=== PATIENT | female | born 1950 | race Caucasian/White ===

== ENCOUNTER → 2016-10-25 | Outpatient (CLI) | payer MEDICARE, BC ==
--- NOTE | 2016-10-25 16:39 | BD ---
EXAMINATION TYPE: MG DEXA axial skeleton. DATE OF EXAM: 10/25/2016 COMPARISON: 10.07.2013 CLINICAL HISTORY: 66-year-old female M89.9, M81.0, M85.8 Height: 62.5 Weight: 168 FRAX RISK QUESTIONS: Alcohol (3 or more units per day): NO Family History (Parent hip fracture): NO Glucocorticoids (More than 3mos): NO (Ex: prednisone, prednisolone, methylprednisolone, dexamethasone, and hydrocortisone). History of Fracture in Adulthood: NO Secondary Osteoporosis: NO 1. Type 1 Diabetes: NO 2. Hyperthyroidism: NO 3. Menopause before 45: NO 4. Malnutrition: NO 5. Chronic liver disease: NO Rheumatoid Arthritis: NO Current Tobacco Use: NO RISK FACTORS HISTORY OF: Family History of Osteoporosis: NONE Active: YES Diet low in dairy products/other sources of calcium: NO Postmenopausal woman: YES AT AGE 48 Hyperparathyroidism: NO Adrenal Insufficiency: NO MEDICATIONS: Additional Medications: BP MEDS, CALCIUM AND VIT D, STATIN FOR CHOLESTEROL, Additional History: NONE TO NOTE EXAM MEASUREMENTS: Bone mineral densitometry was performed using the [employer] System. Bone mineral density as measured about the Lumbar spine is: ----- L1-L4(G/cm2): 0.934 T Score Values are as follows: ----- L1: -2.0 ----- L2: -2.4 ----- L3: -2.3 ----- L4: -1.8 ----- L1-L4: -2.1 Bone mineral density has: Increased 6.2% since study of: 10.07.2013 Bone mineral density about the R hip (g/cm2): 0.832 Bone mineral density about the L hip (g/cm2): 0.888 T Score values are as follows: -----R Neck: -1.4 -----L Neck: -1.2 -----R Total: -1.4 -----L Total: -1.0 Bone mineral density has: Decreased -0.9% since study of: 10.07.2013 FRAX %'S: THERE IS A 8.3% CHANCE OF A MAJOR OSTEOPOROTIC FX AND A 0.8% CHANCE OF A HIP FX.....PRO BABILITY IN 10 YRS TIME IMPRESSION: Osteopenia as indicated by T score values in both hips. There is slightly increased risk of fracture and the patient may be considered for treatment. Re-Scre en 2-5 years NOTE: T-SCORE=SD OF THE YOUNG ADULT MEAN.
--- NOTE | 2016-10-27 09:10 | MM ---
Reason for exam: screening (asymptomatic). Last mammogram was performed 1 year ago. History: Patient is postmenopausal. Family history of premenopausal breast cancer in cousin at age 49 and breast cancer in aunt at age 65. Took hormonal contraceptives for 3 years beginning at age 24. Physical Findings: A clinical breast exam by your physician is recommended on an annual basis and results should be correlated with mammographic findings. MG 3D Screening Mammo W/Cad Bilateral CC and MLO view(s) were taken. Prior study comparison: October 12, 2015, bilateral MG screening mammo w CAD. October 08, 2014, bilateral MG screening mammo w CAD. October 07, 2013, bilateral MG screening mammo w CAD. The breast tissue is heterogeneously dense. This may lower the sensitivity of mammography. Stable global asymmetries. No significant changes when compared with prior studies. ASSESSMENT: Negative, BI-RAD 1 RECOMMENDATION: Routine screening mammogram of both breasts in 1 year.
== END | disposition home or self-care (01) ==
LOC: RADMAMWWP 14:53
PROVIDERS: ATTEND Obstetrics & Gynecology
DX: Z12.31 Encounter for screening mammogram for malignant neoplasm of breast (principal); M81.0 Age-related osteoporosis without current pathological fracture; M85.852 Other specified disorders of bone density and structure, left thigh; M85.851 Other specified disorders of bone density and structure, right thigh
CPT/HCPCS: 77080; 77063; G0202

== ENCOUNTER → 2017-11-09 | Outpatient (CLI) | payer MEDICARE, BC ==
--- NOTE | 2017-11-15 10:05 | MM ---
Reason for exam: screening (asymptomatic). Last mammogram was performed 1 year ago. History: Patient is postmenopausal. Family history of premenopausal breast cancer in cousin at age 49 and breast cancer in aunt at age 65. Took hormonal contraceptives for 3 years beginning at age 24. Physical Findings: A clinical breast exam by your physician is recommended on an annual basis and results should be correlated with mammographic findings. MG 3D Screening Mammo W/Cad Bilateral CC and MLO view(s) were taken. Prior study comparison: October 25, 2016, bilateral MG 3d screening mammo w/cad. October 12, 2015, bilateral MG screening mammo w CAD. Focal asymmetry right upper outer quadrant, stable. No significant changes when compared with prior studies. ASSESSMENT: Benign, BI-RAD 2 RECOMMENDATION: Routine screening mammogram of both breasts in 1 year.
== END | disposition home or self-care (01) ==
LOC: RADMAMWWP 10:45
PROVIDERS: ATTEND Obstetrics & Gynecology
DX: Z12.31 Encounter for screening mammogram for malignant neoplasm of breast (principal)
CPT/HCPCS: 77063; 77067

== ENCOUNTER → 2018-11-13 | Outpatient (CLI) | payer MEDICARE ==
--- NOTE | 2018-11-15 12:01 | MM ---
Reason for exam: screening (asymptomatic). Last mammogram was performed 1 year ago. History: Patient is postmenopausal. Family history of premenopausal breast cancer in cousin at age 49 and breast cancer in aunt at age 65. Took hormonal contraceptives for 3 years beginning at age 24. Physical Findings: A clinical breast exam by your physician is recommended on an annual basis and results should be correlated with mammographic findings. MG 3D Screening Mammo W/Cad Bilateral CC and MLO view(s) were taken. Prior study comparison: November 09, 2017, bilateral MG 3d screening mammo w/cad. October 25, 2016, bilateral MG 3d screening mammo w/cad. The breast tissue is heterogeneously dense. This may lower the sensitivity of mammography. Dense tissues are present in the upper outer quadrants. No significant changes when compared with prior studies. ASSESSMENT: Negative, BI-RAD 1 RECOMMENDATION: Routine screening mammogram of both breasts in 1 year.
== END | disposition home or self-care (01) ==
LOC: RADMAMWWP 09:36
PROVIDERS: ATTEND Obstetrics & Gynecology
DX: Z12.31 Encounter for screening mammogram for malignant neoplasm of breast (principal)
CPT/HCPCS: 77063; 77067

== ENCOUNTER → 2019-12-03 | Outpatient (CLI) | payer MEDICARE ==
--- NOTE | 2019-12-03 13:24 | MM ---
Reason for exam: screening (asymptomatic). Last mammogram was performed 1 year and 1 month ago. History: Patient is postmenopausal. Family history of premenopausal breast cancer in cousin at age 49 and breast cancer in aunt at age 65. Took hormonal contraceptives for 3 years beginning at age 24. Physical Findings: A clinical breast exam by your physician is recommended on an annual basis and results should be correlated with mammographic findings. MG 3D Screening Mammo W/Cad Bilateral CC and MLO view(s) were taken. Prior study comparison: November 13, 2018, bilateral MG 3d screening mammo w/cad. November 09, 2017, bilateral MG 3d screening mammo w/cad. The breast tissue is heterogeneously dense. This may lower the sensitivity of mammography. There are benign appearing round calcifications bilaterally. There is no discrete abnormality. ASSESSMENT: Benign, BI-RAD 2 RECOMMENDATION: Routine screening mammogram of both breasts in 1 year.
== END | disposition home or self-care (01) ==
LOC: RADMAMWWP 08:07
PROVIDERS: ATTEND Obstetrics & Gynecology
DX: Z12.31 Encounter for screening mammogram for malignant neoplasm of breast (principal); Z80.3 Family history of malignant neoplasm of breast
CPT/HCPCS: 77063; 77067

== ENCOUNTER 2019-12-20 07:54 | Day surgery (SDC) | payer MEDICARE ==
[2019-12-18 12:54] VITALS: BMI 29.2
[~2019-12-20 07:54] MED LIST: LACTATED RINGERS 1,000 ML IV SCH; LIDOCAINE 1% (10MG/ML) FOR IV START INTRADERMA PRN
[2019-12-20 08:14] VITALS: TEMP 97.8
[2019-12-20] MEDS ORDERED: LACTATED RINGERS 1,000 ML IV ONE ×2 (08:14)
[2019-12-20] MEDS ORDERED: MIDAZOLAM 2 MG/2 ML VIAL ONE (08:34)
[2019-12-20] MEDS ORDERED: PROPOFOL 10 MG/ML 20 ML VIAL IV ONE (08:34)
--- NOTE | 2019-12-20 08:57 | P.PCN ---
Date of Procedure: 12/20/19 Procedure(s) Performed: BRIEF HISTORY: Patient is a 69-year-old pleasant white female scheduled for an elective colonoscopy as a part of screening for colorectal neoplasia. She has family history of colon cancer diagnosed in her mother at age 65. PROCEDURE PERFORMED: Colonoscopy. PREOPERATIVE DIAGNOSIS: Screening for colon cancer/family history of colon cancer. IV sedation per Anesthesia. PROCEDURE: After informed consent was obtained, the patient, was brought into the endoscopy unit. IV sedation was administered by Anesthesia under continuous monitoring. Digital rectal examination was normal. Initially the Olympus CF-160 flexible video colonoscope was then inserted in the rectum, gradually advanced into the cecum without any difficulty. Careful examination was performed as the scope was gradually being withdrawn. Ileocecal valve and the appendiceal orifice were visualized and appeared normal. Prep was excellent. Mucosa of the cecum, ascending colon, transverse colon, descending colon, sigmoid colon, and rectum appeared normal. Retroflexion was performed in the rectum and no lesions were seen. The patient tolerated the procedure well. IMPRESSION: Normal-appearing colon from rectum to cecum with no evidence of colorectal neoplasia RECOMMENDATIONS: Findings of this examination were discussed with the patient is well as her family. She was advised to have a repeat screening colonoscopy in 5 years because of the family history of colon cancer.
[2019-12-20 09:00] VITALS: RESP 16
[2019-12-20 09:13] VITALS: BP 127/74; PULSE 59
== END 2019-12-20 09:29 | disposition home or self-care (01) ==
LOC: ORWHC2ENDO 07:54
PROVIDERS: ATTEND Internal Medicine Gastroenterology
DX: Z12.11 Encounter for screening for malignant neoplasm of colon (principal); Z80.0 Family history of malignant neoplasm of digestive organs; I10 Essential (primary) hypertension; K21.9 Gastro-esophageal reflux disease without esophagitis; Z88.2 Allergy status to sulfonamides; Z79.899 Other long term (current) drug therapy
CPT/HCPCS: J2250; J2704; G0105

== ENCOUNTER → 2020-01-02 | Outpatient (CLI) | payer MEDICARE ==
--- NOTE | 2020-01-02 15:35 | BD ---
EXAMINATION TYPE: Axial Bone Density DATE OF EXAM: 01/02/2020 COMPARISON: NONE CLINICAL HISTORY: Height: 62 Weight: 167.4 FRAX RISK QUESTIONS: Alcohol (3 or more units per day): no Family History (Parent hip fracture): no Glucocorticoids (More than 3mos): no (Ex: prednisone, prednisolone, methylprednisolone, dexamethasone, and hydrocortisone). History of Fracture in Adulthood: no Secondary Osteoporosis: 1. Type 1 Diabetes: no 2. Hyperthyroidism: no 3. Menopause before 45: no 4. Malnutrition: no 5. Chronic liver disease: no Rheumatoid Arthritis: no Current Tobacco Use: no RISK FACTORS HISTORY OF: Active: yes Diet low in dairy products/other sources of calcium: yes Postmenopausal woman: age 48 Lost more than 2 inches in height since high school: just 2 inches MEDICATIONS: bp meds, cholesterol meds Additional History: EXAM MEASUREMENTS: Bone mineral densitometry was performed using the [employer] System. Bone mineral density as measured about the Lumbar spine is: ----- L1-L4(G/cm2): 0.921-2.3 T Score Values are as follows: ----- L2: -2.3 ----- L3: -2.7 ----- L4:-1.8 ----- L1-L4: -2.2 Bone mineral density has: DECREASED -2.2 % since study of: 10.25.2016 Bone mineral density about the R hip (g/cm2): 0.802 Bone mineral density about the L hip (g/cm2): 0.857 T Score values are as follows: -----R Neck: -1.7 -----L Neck: -1.3 -----R Total: -1.7 -----L Total: -1.2 Bone mineral density has: DECREASED -4.2 % since study of: 10.25.2016 IMPRESSION: Osteopenia NOTE: T-SCORE=SD OF THE YOUNG ADULT MEAN.
== END | disposition home or self-care (01) ==
LOC: RADBDWWP 14:03
PROVIDERS: ATTEND Obstetrics & Gynecology
DX: M85.80 Other specified disorders of bone density and structure, unspecified site (principal)
CPT/HCPCS: 77080

== ENCOUNTER → 2020-06-08 | Outpatient (CLI) | payer MEDICARE ==
--- NOTE | 2020-06-08 08:59 | US ---
EXAMINATION TYPE: US abdomen complete DATE OF EXAM: 06/08/2020 COMPARISON: NONE CLINICAL HISTORY: E80.6 Other disorders of bilirubin. Abnormal blood work EXAM MEASUREMENTS: Liver Length: 13.6 cm Gallbladder Wall: 0.1 cm CBD: 0.4 cm Spleen: 9.1 cm Right Kidney: 11.4 x 4.7 x 4.3 cm Left Kidney: 11.7 x 4.9 x 4.5 cm Pancreas: No pathology seeen Liver: wnl Gallbladder: wnl Evidence for sonographic Sanford's sign: No CBD: wnl Spleen: multiple echogenic foci scattered throughout. Right Kidney: No hydronephrosis or masses seen Left Kidney: Dilated renal pelvis Upper IVC: wnl Abd Aorta: wnl IMPRESSION: 1. Splenic granuloma. 2. Mild prominence the left renal collecting system. Correlate for mild hydronephrosis. Obstructing e tiology is not identified by ultrasound.
== END | disposition home or self-care (01) ==
LOC: RADUSWWP 08:02
PROVIDERS: ATTEND Family Medicine
DX: R93.5 Abnormal findings on diagnostic imaging of other abdominal regions, including retroperitoneum (principal); D73.89 Other diseases of spleen
CPT/HCPCS: 76700

== ENCOUNTER → 2020-07-23 | Outpatient (CLI) | payer MEDICARE ==
[2020-07-23 09:40] LABS: African American GFR (CKD) >90 (>60 ml/min/1.73 sqM); Blood Urea Nitrogen 17 mg/dL (7-17); Non-African American GFR(CKD) >90 (>60 ml/min/1.73 sqM)
--- NOTE | 2020-07-23 10:46 | CT ---
EXAMINATION TYPE: CT abdomen w con DATE OF EXAM: 07/23/2020 COMPARISON: Ultrasound 06/08/2020 HISTORY: 69-year-old female with abnormal ultrasound and labs, K76.6, portal hypertension TECHNIQUE: Contiguous axial scanning of the abdomen following administration of 100 ml Isovue 300 IV contrast. Delayed images through the kidneys and coronal/sagittal reconstructions performed. CT DLP: 465.6 mGycm Automated exposure control for dose reduction was used. FINDINGS: Heart normal size without pericardial effusion. Elongated cystic area along the right cardiophrenic a ngle measuring 3.4 x 1.5 cm suggestive of a pericardiac cyst. Lung bases clear without pleural effusi on. Small hiatal hernia. Liver normal size. No focal liver lesion. Subtle 1.8 cm hypodensity within the pancreatic head region on axial image 25 and coronal image 36. No dilatation of the main pancreatic duct or pancreatic atro phy. Unclear if this is artifactual. The main portal vein has a caliber of 1.5 cm which is very slightly enlarged. The portal venous syste m remains patent. Gallbladder, adrenal glands, and spleen appear within normal limits. Extrarenal pelvis right kidney. Numerous parapelvic cysts within the left kidney measuring up to 3.2 cm. No jo ann hydronephrosis is identified. Symmetric uptake and excretion of contrast from both kidne ys. No dilated small bowel, free fluid, or free air. No mesenteric or retroperitoneal lymphadenopathy see n. Normal appendix. Scattered [id number]-mx-ybowayes stool. No pericolonic inflammatory change. The pelvis is not imaged. Bones: Moderate degenerative disc disease L5-S1. Mild within other levels of the lumbar spine. Facet arthropathy lower lumbar spine. IMPRESSION: 1. THE MAIN PORTAL VEIN IS VERY SLIGHTLY DILATED AT 1.5 CM (NORMAL <1.3 CM). FINDINGS MAY BE SEEN IN THE SETTING OF PORTAL VENOUS HYPERTENSION. THE PORTAL VENOUS SYSTEM REMAINS PATENT. 2. SUBTLE 1.8 CM HYPODENSITY WITHIN THE PANCREATIC HEAD REGION. UNCLEAR IF THIS IS ARTIFACTUAL. CORRE LATE WITH CA-19-9 LEVELS. DEPENDING ON CLINICAL SUSPICION OF A PANCREATIC HEAD MASS, EITHER FURTHER E VALUATION WITH DYNAMIC CONTRAST-ENHANCED PANCREAS MRI VERSUS THREE-MONTH FOLLOW-UP CT. 3. ULTRASOUND FINDINGS IN REGARDS TO THE LEFT KIDNEY CORRESPOND TO PARAPELVIC CYSTS MEASURING UP TO 3 .2 CM. NO HYDRONEPHROSIS. 4. SMALL HIATAL HERNIA.
== END | disposition home or self-care (01) ==
LOC: RADCTMAIN 08:39
PROVIDERS: ATTEND Internal Medicine Hematology & Oncology
DX: K76.6 Portal hypertension (principal); K44.9 Diaphragmatic hernia without obstruction or gangrene; Z88.2 Allergy status to sulfonamides
CPT/HCPCS: 82565; 84520; 74160; 36415; Q9967

== ENCOUNTER → 2020-09-11 | Outpatient (CLI) | payer MEDICARE ==
--- NOTE | 2020-09-12 03:02 | MR ---
EXAMINATION TYPE: MR pancreas wo/w con DATE OF EXAM: 09/11/2020 COMPARISON: None HISTORY: CT SCAN SHOWED A SHADOW ON PT'S PANCREAS CONTRAST: Standard multiplanar, multisequence MRI departmental protocol utilizing 7 mL intravenous Gadavist sam olinium contrast. Liver shows no focal defect. The bile ducts are not dilated. Gallbladder appears normal. There is 5 m m common bile duct. Spleen is intact. The pancreatic duct appears normal. The pancreas has fairly nor mal signal pattern. There is no evidence of edema. I see no evidence of a pancreatic mass. There is no adrenal mass. Kidneys have normal size and contour. There is no hydronephrosis. Ureters a re not dilated. There is no sign of retroperitoneal adenopathy. There is no ascites. Stomach appears normal. There is no evidence of pleural effusion. There is no sign of pericardial effusion. The contrast images show no pathologic enhancement. There is normal enhancement of the portal venous system. Kidneys show no focal defect. IMPRESSION: Negative MR scan of the abdomen. Normal pancreas. No evidence of a pancreatic mass. Normal biliary tr ee.
== END | disposition home or self-care (01) ==
LOC: RADMRIMAIN 16:22
PROVIDERS: ATTEND Internal Medicine Hematology & Oncology
DX: E80.7 Disorder of bilirubin metabolism, unspecified (principal)
CPT/HCPCS: 74183; A9585

== ENCOUNTER → 2020-12-04 | Outpatient (CLI) | payer MEDICARE ==
--- NOTE | 2020-12-07 10:48 | MM ---
Reason for exam: screening (asymptomatic). Last mammogram was performed 1 year ago. History: Patient is postmenopausal. Family history of premenopausal breast cancer in cousin at age 49 and breast cancer in aunt at age 65. Took hormonal contraceptives for 3 years beginning at age 24. Physical Findings: A clinical breast exam by your physician is recommended on an annual basis and results should be correlated with mammographic findings. MG 3D Screening Mammo W/Cad Bilateral CC and MLO view(s) were taken. Prior study comparison: December 03, 2019, bilateral MG 3d screening mammo w/cad. November 13, 2018, bilateral MG 3d screening mammo w/cad. The breast tissue is heterogeneously dense. This may lower the sensitivity of mammography. Stable benign calcifications. There is no discrete abnormality. No significant changes when compared with prior studies. ASSESSMENT: Benign, BI-RAD 2 RECOMMENDATION: Routine screening mammogram of both breasts in 1 year.
== END | disposition home or self-care (01) ==
LOC: RADMAMWWP 09:26
PROVIDERS: ATTEND Obstetrics & Gynecology
DX: Z12.31 Encounter for screening mammogram for malignant neoplasm of breast (principal); Z80.3 Family history of malignant neoplasm of breast
CPT/HCPCS: 77063; 77067

== ENCOUNTER 2021-03-10 10:05 | Emergency (ER) | payer MEDICARE ==
[2021-03-10 10:30] VITALS: BP 143/72; PULSE 61; RESP 18; TEMP 97.9
--- NOTE | 2021-03-10 11:45 | ED ---
Recheck HPI - General Chief Complaint: Recheck/Abnormal Lab/Rx Stated Complaint: Covid Test Time Seen by Provider: 03/10/21 11:33 Source: patient, RN notes reviewed Mode of arrival: ambulatory Limitations: no limitations - History of Present Illness Initial Comments: Patient is a 70-year-old female presenting to the emergency department requesting a Covid test. Patient states her and her recently exposed to Covid about 3 days ago and wanted to get tested before the holiday. She has no symptoms, no complaints today. No recent fevers or chills, no upper respiratory symptoms. She has been fully vaccinated. She has no further complaints. - Related Data Home Medications Medication Instructions Recorded Confirmed Aspirin 81 mg PO DAILY 07/01/14 12/18/19 Hydrochlorothiazide 12.5 mg PO QAM 07/01/14 12/18/19 Metoprolol Tartrate 50 mg PO QAM 07/01/14 12/18/19 amLODIPine BESYLATE [Amlodipine 5 mg PO QAM 07/01/14 12/18/19 Besylate] Atorvastatin [Lipitor] 20 mg PO HS 12/24/15 12/18/19 Julien/D3/Mag11/Zinc/Special Police Officer/Mikey/Bor 1 each PO DAILY 12/24/15 12/18/19 [Caltrate 600+D Plus Tablet] Fish Oil/Dha/Epa [Fish Oil 1,200 1,200 mg PO DAILY 12/24/15 12/18/19 mg Fish Oil] Multivit with Calcium,Iron,Min 1 each PO DAILY 12/24/15 12/18/19 [Women's Daily Multivitamin] Allergies Allergy/AdvReac Type Severity Reaction Status Date / Time Sulfa (Sulfonamide Allergy Rash/Hives Verified 12/18/19 12:49 Antibiotics) Review of Systems ROS Statement: Those systems with pertinent positive or pertinent negative responses have been documented in the HPI. ROS Other: All systems not noted in ROS Statement are negative. Past Medical History Past Medical History: GERD/Reflux, Hyperlipidemia, Hypertension History of Any Multi-Drug Resistant Organisms: None Reported Past Surgical History: Orthopedic Surgery, Tonsillectomy Additional Past Surgical History / Comment(s): OVARIAN CYST REMOVED,rt knee arthroscopy Past Anesthesia/Blood Transfusion Reactions: Postoperative Nausea & Vomiting (PONV) Past Psychological History: No Psychological Hx Reported Smoking Status: Never smoker - Past Family History Mother Family Medical History: Cancer Additional Family Medical History / Comment(s): colon Father Family Medical History: Cancer, COPD Additional Family Medical History / Comment(s): kidney ca General Exam - General Exam Comments Initial Comments: GENERAL: Patient is well-developed and well-nourished. Patient is nontoxic and in no acute distress. HEAD: Atraumatic, normocephalic. EYES: Pupils equal round and reactive to light, extraocular movements intact, sclera anicteric, conjunctiva are normal. Eyelids were unremarkable. ENT: Moist mucous membranes. NECK: Normal range of motion, supple without lymphadenopathy or JVD. LUNGS: Unlabored respirations. Breath sounds clear to auscultation bilaterally and equal. No wheezes rales or rhonchi. HEART: Regular rate and rhythm without murmurs, rubs or gallops. ABDOMEN: Soft, nontender, normoactive bowel sounds. MUSCULOSKELETAL: Normal extremities with adequate strength and normal range of motion, no pitting or edema. No clubbing or cyanosis. NEUROLOGICAL: Patient is alert and oriented x 3. SKIN: Warm, Dry, normal turgor, no rashes or lesions noted. Limitations: no limitations Course Vital Signs 03/10/21 10:27 Temperature 97.9 F Pulse Rate 61 Respiratory 18 Rate Blood Pressure 143/72 O2 Sat by Pulse 98 Oximetry Medical Decision Making - Medical Decision Making Patient is a 70-year-old female here requesting Covid test her recent exposure. She has no symptoms, she's been fully vaccinated. Her test today is negative. She is stable for discharge. - Lab Data Lab Results 03/10/21 Range/Units 10:39 Coronavirus (PCR) Not Detected (Not Detectd) Disposition Clinical Impression: Lab test negative for COVID-19 virus, Exposure to COVID-19 virus Disposition: HOME SELF-CARE Condition: Stable Instructions (If sedation given, give patient instructions): Normal Exam (ED) Additional Instructions: Please return to the Emergency Department if symptoms worsen or any other concerns. Covid test is negative today. Is patient prescribed a controlled substance at d/c from ED?: No Referrals: Ifrah Oliva MD [Primary Care Provider] - 1-2 days Time of Disposition: 11:45
== END 2021-03-10 12:03 | disposition home or self-care (01) ==
LOC: EC 10:05
DX: Z20.822 Contact with and (suspected) exposure to COVID-19 (principal); I10 Essential (primary) hypertension; E78.5 Hyperlipidemia, unspecified; Z88.2 Allergy status to sulfonamides; Z79.82 Long term (current) use of aspirin; Z79.899 Other long term (current) drug therapy
CPT/HCPCS: 87635; 99282

== ENCOUNTER → 2022-01-19 | Outpatient (CLI) | payer MEDICARE ==
--- NOTE | 2022-01-20 11:34 | MM ---
Reason for Exam: Screening (asymptomatic). Last mammogram was performed 1 year(s) and 2 month(s) ago. Patient History: Menarche at age 13. First Full-Term at age 26. Postmenopausal. Hormonal Contraceptives for 3 years from age 24 until age 27. Maternal cousin had breast cancer, age 49. Maternal aunt had breast cancer, age 65. Risk Values: Skylar 5 year model risk: 1.9%. NCI Lifetime model risk: 5.6%. Prior Study Comparison: 10/25/2016 Bilateral Screening Mammogram, [facility]. 11/09/2017 Bilateral Screening Mammogram, [facility]. 11/13/2018 Bilateral Screening Mammogram, [facility]. 12/03/2019 Bilateral Screening Mammogram, [facility]. 12/04/2020 Bilateral Screening Mammogram, [facility]. Tissue Density: The breast tissue is heterogeneously dense. This may lower the sensitivity of mammography. Findings: Analyzed By CAD. There are few scattered benign-appearing round and vascular calcifications bilaterally identified. Benign-appearing bilateral axillary lymph nodes are again seen. There is no suspicious new group of microcalcifications or new suspicious mass in either breast. Overall Assessment: Benign, BI-RAD 2 Management: Screening Mammogram of both breasts in 1 year. A clinical breast exam by your physician is recommended on an annual basis and results should be correlated with mammographic findings. Electronically signed and approved by: Gamaliel Kenny M.D.
== END | disposition home or self-care (01) ==
LOC: RADMAMWWP 10:42
PROVIDERS: ATTEND Obstetrics & Gynecology
DX: Z08 Encounter for follow-up examination after completed treatment for malignant neoplasm (principal); Z80.3 Family history of malignant neoplasm of breast
CPT/HCPCS: 77063; 77067

== ENCOUNTER → 2022-04-13 | Outpatient (CLI) | payer MEDICARE ==
--- NOTE | 2022-04-13 09:07 | BD ---
EXAMINATION TYPE: Axial Bone Density DATE OF EXAM: 04/13/2022 COMPARISON: 01/02/2020 CLINICAL HISTORY: 71 years old Female. ICD-10 CODE: M85.88 OTH DISRD OF BONE DENSITY AND STRUCTURE, OT Height: 62 Weight: 147 FRAX RISK QUESTIONS: Alcohol (3 or more units per day): NO Family History (Parent hip fracture): NO History of Fracture in Adulthood: YES RIBS AT 66 Secondary Osteoporosis: NO Rheumatoid Arthritis: NO Current Tobacco Use: NO RISK FACTORS HISTORY OF: Family History of Osteoporosis: NO Active: YES Diet low in dairy products/other sources of calcium: YES Postmenopausal woman: YES 48 Lost more than 2 inches in height since high school: NO Frequent falls: NO Poor Health: NO Hyperparathyroidism: NO Adrenal Insufficiency: NO MEDICATIONS: Additional Medications: YES VIT D , CALCIUM , HBP , CHOLESTEROL MEDS , 81MG ASPIRIN EXAM MEASUREMENTS: Bone mineral densitometry was performed using the [employer] System. Bone mineral density as measured about the Lumbar spine is: ----- L1-L4(G/cm2): 0.890 T Score Values are as follows: ----- L1: -2.6 ----- L2: -2.3 ----- L3: -2.7 ----- L4: -2.2 ----- L1-L4: -2.4 Bone mineral density has: Decreased -3.4% since study of: 01/02/2020 Bone mineral density about the R hip (g/cm2): 0.775 Bone mineral density about the L hip (g/cm2): 0.795 T Score values are as follows: -----R Neck: -1.8 -----L Neck: -1.4 -----R Total: -1.8 -----L Total: -1.7 Bone mineral density has: Decreased -4.7% since study of: 01/02/2020 FRAX%s: The graph provided illustrates a 17.1% chance for a major osteoporotic fx and a 2.9% chance f or the hips probability for fx in 10 years time. IMPRESSION: Osteoporosis (T Score less than -2.5). There is increased fracture risk and therapy is usually indicated based on age. Re-Screen 1-2 years. NOTE: T-SCORE=SD OF THE YOUNG ADULT MEAN.
== END | disposition home or self-care (01) ==
LOC: RADBDWWP 07:53
PROVIDERS: ATTEND Obstetrics & Gynecology
DX: M81.0 Age-related osteoporosis without current pathological fracture (principal); M85.88 Other specified disorders of bone density and structure, other site; N95.1 Menopausal and female climacteric states
CPT/HCPCS: 77080

== ENCOUNTER → 2023-01-20 | Outpatient (CLI) | payer MEDICARE ==
--- NOTE | 2023-01-23 08:54 | MM ---
Reason for Exam: Screening (asymptomatic). Last screening mammogram was performed 12 month(s) ago. Patient History: Menarche at age 13. First Full-Term at age 26. Postmenopausal. Hormonal Contraceptives for 3 years from age 24 until age 27. Maternal cousin had breast cancer, age 49. Maternal aunt had breast cancer, age 65. Risk Values: Skylar 5 year model risk: 1.9%. NCI Lifetime model risk: 5.4%. Prior Study Comparison: 12/03/2019 Bilateral Screening Mammogram, [facility]. 12/04/2020 Bilateral Screening Mammogram, [facility]. 01/19/2022 Bilateral MG 3D screening mammo w/cad, [facility]. Tissue Density: The breast tissue is heterogeneously dense. This may lower the sensitivity of mammography. Findings: Analyzed By CAD. There is no suspicious group of microcalcifications or new suspicious mass in either breast. Benign calcifications within both breasts. Overall Assessment: Benign, BI-RAD 2 Management: Screening Mammogram of both breasts in 1 year. A clinical breast exam by your physician is recommended on an annual basis and results should be correlated with mammographic findings. Note on Skylar scores and lifetime risk: 1. A Skylar score greater than 3% is considered moderate risk. If this is the case, consider specialist referral to assess eligibility for a risk reducing agent. If overall lifetime risk for the development of breast cancer is 20% or higher, the patient may qualify for future screening with alternating mammogram and breast MRI. Electronically signed and approved by: Siddharth Villalta D.O.
== END | disposition home or self-care (01) ==
LOC: RADMAMWWP 15:41
PROVIDERS: ATTEND Obstetrics & Gynecology
DX: Z12.31 Encounter for screening mammogram for malignant neoplasm of breast (principal); Z78.0 Asymptomatic menopausal state; Z80.3 Family history of malignant neoplasm of breast
CPT/HCPCS: 77063; 77067

== ENCOUNTER → 2023-11-07 | Outpatient (CLI) | payer MEDICARE ==
--- NOTE | 2023-11-07 11:48 | MR ---
EXAMINATION TYPE: MR knee LT wo con DATE OF EXAM: 11/07/2023 COMPARISON: X-ray 10/31/2019 HISTORY: Left knee pain, S/P injury 10-20-23. TECHNIQUE: Multiplanar, multisequence imaging of the left knee is performed without IV contrast. FINDINGS: MEDIAL MENISCUS: There is grade 3 abnormal signal posterior horn medial meniscus compatible with line ar tear. LATERAL MENISCUS: Intrasubstance signal anterior horn and posterior horn lateral meniscus most typica l of myxoid degeneration. Subtle tear not excluded. CRUCIATE LIGAMENTS: The anterior and posterior cruciate ligaments are intact and unremarkable. COLLATERAL LIGAMENTS: The medial collateral ligament and lateral collateral ligament complex are inta ct and unremarkable. EXTENSOR MECHANISM: Visualized quadriceps and patellar tendons are intact. Small suprapatellar bursal fluid collection. EFFUSION: No significant suprapatellar joint effusion. POPLITEAL CYST: There is a popliteal fossa cyst measuring 1.5 x 1.8 x 4.4 cm. TRICOMPARTMENT SPACES: Mild narrowing of the tricompartmental joint spaces with marginal spurring. No erosive changes. CARTILAGE: Maintained BONE MARROW SIGNAL: Marrow signal within the patella likely reactive. Faint increased signal involvin g the posterior medial tibia compatible with an area of marrow edema or contusion. OTHER: Subcutaneous edema. Soft tissue nodule seen posterior to the distal femur likely related to a small lymph node. IMPRESSION: 1. Posterior horn medial meniscal tear. 2. Popliteal fossa cyst measuring 1.5 x 1.8 x 4.4 cm. 3. Intrasubstance signal posterior and anterior horn lateral meniscus. Mucoid degeneration of favored . Subtle linear tear not excluded. 4. No evidence of ligamentous tear. 5. Small suprapatellar bursal fluid collection and subcutaneous edema. 6. Small area of marrow edema or bone contusion posterior medial proximal tibia.
== END | disposition home or self-care (01) ==
LOC: RADMRIMAIN 10:58
PROVIDERS: ATTEND Orthopaedic Surgery
DX: S83.242A Other tear of medial meniscus, current injury, left knee, initial encounter (principal); M71.22 Synovial cyst of popliteal space [Baker], left knee; M25.562 Pain in left knee; R60.0 Localized edema

== ENCOUNTER 2023-12-14 08:36 | Day surgery (SDC) | payer MEDICARE ==
[2023-12-14] MEDS: LACTATED RINGERS 1,000 ML BAG IV STA (09:20)
[2023-12-14] MEDS: ONDANSETRON 4 MG/2 ML VIAL IVP STA (09:22)
[2023-12-14] MEDS: IV FLUID CONTINUATION 1,000 ML IV ONE (09:24)
[2023-12-14] MEDS ORDERED: PROPOFOL 10 MG/ML 20 ML VIAL IV ONE (09:46)
[2023-12-14] MEDS ORDERED: KETOROLAC 15 MG/ML 1 ML VIAL ONE (09:46)
[2023-12-14] MEDS ORDERED: fentaNYL (PF) 50 MCG/ML 2 ML AMP ONE (09:46)
[2023-12-14] MEDS ORDERED: MIDAZOLAM 2 MG/2 ML VIAL ONE (09:46)
[2023-12-14] MEDS ORDERED: SUCCINYLCHOLINE CHLORIDE 200 MG/10 ML VIAL IV ONE (09:46)
[2023-12-14] MEDS ORDERED: LIDOCAINE 1% INJ 10MG/ML (20 ML MDV) ONE (09:46)
[2023-12-14] MEDS: BUPIVACAINE (PF) 0.25% 10 ML VIAL SQ ONE (10:14)
--- NOTE | 2023-12-14 10:36 | P.OP ---
Date of Procedure: 12/14/23 Preoperative Diagnosis: Internal derangement left knee Postoperative Diagnosis: 1. Tear medial and lateral meniscus left knee 2. Grade IV chondromalacia femoral sulcus left knee 3. Reactive synovitis medial, lateral and suprapatellar compartments left knee Procedure(s) Performed: 1. Arthroscopic partial medial and lateral meniscectomy left knee 2. Arthroscopic microfracture femoral sulcus left knee 3. Arthroscopic partial synovectomy medial, lateral and suprapatellar compartments left knee Anesthesia: TERAA, local Surgeon: Damon Ho Estimated Blood Loss (ml): 7 Pathology: none sent Condition: stable Disposition: PACU Indications for Procedure: 73-year-old patient seen with progressive left knee pain. After having treatment options discussed, she elected to proceed with arthroscopy. Operative Findings: See description of procedure Description of Procedure: Patient was taken to the operative suite. Patient underwent a general anesthetic by the department of anesthesia. Patient was given preoperative antibiotics. The left lower extremity was placed in a well-padded arthroscopic leg fernández. The left leg was prepped and draped in the normal sterile orthopedic fashion. A lateral parapatellar and suprapatellar incision was made. Trochars were inserted. Arthroscopy was initiated. Suprapatellar pouch revealed diffuse thick reactive synovitis. There were grade II chondromalacia changes of the patella with some osteochondral flap tears present. There was an area of grade III/IV chondromalacia of the femoral sulcus with osteochondral flap tears as well.. The patellofemoral joint appeared to articulate congruently. The scope was guided into the medial gutter. No loose bodies or plica were identified. The scope was then guided into the medial compartment. A medial parapatellar incision was made. Trocar inserted followed by probe. There was a complex tear posterior horn medial meniscus involving the root. There were grade II chondromalacia changes of the medial femoral condyle. There was thick reactive synovitis anteriorly. I performed a partial medial meniscectomy getting down to stable meniscal tissue. I performed a partial synovectomy decompressing the reactive synovitis. The residual meniscus was stable. There was good decompression of the synovitis. Scope and probe were then guided into the intercondylar notch. Cruciates were identified, probed and found to be stable. The scope and probe were then guided into lateral compartment. A radial tear involving the posterior lateral meniscus. There was no significant chondromalacia in the lateral compartment. There was some reactive synovitis anteriorly. I performed a partial lateral meniscectomy getting down to stable meniscal tissue. I performed a partial synovectomy decompressing the reactive synovitis. The residual meniscus was stable. There was good decompression of the synovitis. The scope was in guided back into the suprapatellar compartment. I introduced a motorized shaver into the supra compartment. I performed a chondroplasty of the patella of the patella getting down to stable osteochondral tissue. I performed a chondroplasty of the femoral sulcus getting down to stable osteochondral tissue. I did note an area of exposed bone/grade IV chondromalacia involving the femoral sulcus measuring just about a centimeter. I introduced a microfracture awl and I performed microfrac ture to the area of exposed bone penetrating the bone with resultant bleeding at the microfracture site. The residual osteochondral surfaces appeared stable. I reduced a motorized shaver and performed a partial synovectomy. The shaver was removed. There was good decompression of the synovitis. Instruments were now removed from the joint. The joint was infiltrated with .25% Marcaine. Steri-S trips were applied to the portal sites. Sterile dressings were applied. The patient was placed into a WES hose. No tourniquet was utilized. The patient was awakened, transferred to a bed and taken to recovery stable satisfactory condition.
[2023-12-14 10:40] VITALS: TEMP 97.4
[2023-12-14 11:43] VITALS: RESP 16
[2023-12-14 12:14] VITALS: BP 157/82; PULSE 71
== END 2023-12-14 12:38 | disposition home or self-care (01) ==
LOC: OR 08:36
PROVIDERS: ATTEND Orthopaedic Surgery
DX: S83.282A Other tear of lateral meniscus, current injury, left knee, initial encounter (principal); M22.42 Chondromalacia patellae, left knee; M65.162 Other infective (teno)synovitis, left knee; X58.XXXA Exposure to other specified factors, initial encounter

== ENCOUNTER → 2024-03-05 | Outpatient (CLI) | payer MEDICARE ==
--- NOTE | 2024-03-05 10:01 | MM ---
Reason for Exam: Screening (asymptomatic). Last mammogram was performed 1 year(s) and 1 month(s) ago. Patient History: Menarche at age 13. First Full-Term at age 26. Postmenopausal. Hormonal Contraceptives for 3 years from age 24 until age 27. Maternal cousin had breast cancer, age 49. Maternal aunt had breast cancer, age 65. Risk Values: Skylar 5 year model risk: 2.0%. NCI Lifetime model risk: 5.1%. Prior Study Comparison: 12/04/2020 Bilateral Screening Mammogram, [facility]. 01/19/2022 Bilateral MG 3D screening mammo w/cad, [facility]. 01/20/2023 Bilateral MG 3D screening mammo w/cad, [facility]. Tissue Density: The breasts are heterogeneously dense, which may obscure small masses. Findings: Analyzed By CAD. Asymmetric nodular density upper outer right breast 6.6 cm from the nipple. Additional views are recommended. Left breast is free of distinct mass. Benign calcifications seen bilaterally. Overall Assessment: Incomplete: need additional imaging evaluation, BI-RAD 0 Management: Diagnostic Mammogram of the right breast. . Patient should continue monthly self-breast exams. A clinical breast exam by your physician is recommended on an annual basis. This exam should not preclude additional follow-up of suspicious palpable abnormalities. Note on Skylar scores and lifetime risk: 1. A Skylar score greater than 3% is considered moderate risk. If this is the case, consider specialist referral to assess eligibility for a risk reducing agent. 2. If overall lifetime risk for the development of breast cancer is 20% or higher, the patient may qualify for future screening with alternating mammogram and breast MRI. [facility], , 03/05/2024 9:58 AM. Electronically signed and approved by: Jaden Murillo M.D. Radiologis
== END | disposition home or self-care (01) ==
LOC: RADMAMWWP 07:36
PROVIDERS: ATTEND Family Medicine
DX: Z12.31 Encounter for screening mammogram for malignant neoplasm of breast (principal); Z78.0 Asymptomatic menopausal state; Z80.3 Family history of malignant neoplasm of breast; R92.333 Mammographic heterogeneous density, bilateral breasts
CPT/HCPCS: 77063; 77067

== ENCOUNTER → 2024-03-07 | Outpatient (CLI) | payer MEDICARE ==
--- NOTE | 2024-03-07 10:18 | MM ---
Reason for Exam: Additional evaluation requested from abnormal screening. Last screening mammogram was performed less than 1 month ago. Patient History: Menarche at age 13. First Full-Term at age 26. Postmenopausal. Hormonal Contraceptives for 3 years from age 24 until age 27. Maternal cousin had breast cancer, age 49. Maternal aunt had breast cancer, age 65. Risk Values: Skylar 5 year model risk: 2.0%. NCI Lifetime model risk: 5.1%. Prior Study Comparison: 12/03/2019 Bilateral Screening Mammogram, [facility]. 12/04/2020 Bilateral Screening Mammogram, [facility]. 01/19/2022 Bilateral MG 3D screening mammo w/cad, [facility]. 01/20/2023 Bilateral MG 3D screening mammo w/cad, [facility]. 03/05/2024 Bilateral MG 3D screening mammo w/cad, [facility]. Tissue Density: Right: The breasts are heterogeneously dense, which may obscure small masses. Findings: Analyzed By CAD. No persistent asymmetric density upper outer right breast. No mass or distortion seen. Overall Assessment: Benign, BI-RAD 2 Management: Screening Mammogram of both breasts in 1 year. . Results were given to the patient verbally at the time of exam. Patient should continue monthly self-breast exams. A clinical breast exam by your physician is recommended on an annual basis. This exam should not preclude additional follow-up of suspicious palpable abnormalities. Note on Skylar scores and lifetime risk: 1. A Skylar score greater than 3% is considered moderate risk. If this is the case, consider specialist referral to assess eligibility for a risk reducing agent. 2. If overall lifetime risk for the development of breast cancer is 20% or higher, the patient may qualify for future screening with alternating mammogram and breast MRI. [facility], , 03/07/2024 10:15 AM. Electronically signed and approved by: Jaden Murillo M.D. Radiologis
== END | disposition home or self-care (01) ==
LOC: RADMAMWWP 08:43
PROVIDERS: ATTEND Family Medicine
DX: R92.8 Other abnormal and inconclusive findings on diagnostic imaging of breast (principal); Z78.0 Asymptomatic menopausal state; Z80.3 Family history of malignant neoplasm of breast; R92.331 Mammographic heterogeneous density, right breast
CPT/HCPCS: 77061; 77065

== ENCOUNTER → 2024-08-30 | Outpatient (CLI) | payer MEDICARE ==
--- NOTE | 2024-08-30 13:44 | BD ---
EXAMINATION TYPE: Axial Bone Density DATE OF EXAM: 08/30/2024 CLINICAL HISTORY: 73 years old Female. ICD-10 CODE: M81.0 AGE-RELATED OSTEOPOROSIS W/O CURRENT PATHO LOGY , Additional History: Height: 61.5 Weight: 162.0 FRAX RISK QUESTIONS: Alcohol (3 or more units per day): no Family History (Parent hip fracture): no Glucocorticoids (More than 3mos): no (Ex: prednisone, prednisolone, methylprednisolone, dexamethasone, and hydrocortisone). History of Fracture in Adulthood: yes Secondary Osteoporosis: 1. Type 1 Diabetes: no 2. Hyperthyroidism: no 3. Menopause before 45: no 4. Malnutrition: no 5. Chronic liver disease: no Rheumatoid Arthritis: no Current Tobacco Use: no RISK FACTORS HISTORY OF: Surgery to Spine/Hip(right/left)/Wrist (right/left): no MEDICATIONS: Osteoporosis Medications: alendronate How Lon years EXAM MEASUREMENTS: Bone mineral densitometry was performed using the [employer] System. Bone mineral density as measured about the Lumbar spine is: ----- L1-L4(G/cm2): 0.971 T Score Values are as follows: ----- L1: -1.6 ----- L2: -1.7 ----- L3: -2.6 ----- L4: -1.2 ----- L1-L4: -1.7 Z Score Values are as follows: ----- L1: -0.1 ----- L2: -0.3 ----- L3: -1.2 ----- L4: 0.3 ----- L1-L4: -0.3 Bone mineral density has: increased 9.1 % since study of: 04.13.2022 Bone mineral density about the R hip (g/cm2): 0.808 Bone mineral density about the L hip (g/cm2): 0.837 T Score values are as follows: -----R Neck: -1.4 -----L Neck: -1.2 -----R Total: -1.6 -----L Total: -1.4 Z Score values are as follows: -----R Neck: 0.3 -----L Neck: 0.4 -----R Total: -0.2 -----L Total: 0.1 Bone mineral density has: increased 4.8 % since study of: 12..2021 FRAX%s: The graph provided illustrates a 15.6% chance for a major osteoporotic fx and a 2.3% chance f or the hips probability for fx in 10 years time. IMPRESSION: Osteopenia (T Score between -2.5 and -1) is redemonstrated. There is slightly increased risk of fracture and the patient may be considered for treatment. Re-Screen 2-5 years. NOTE: T-SCORE=SD OF THE YOUNG ADULT MEAN. [facility], , 08/30/2024 1:41 PM
== END | disposition home or self-care (01) ==
LOC: RADBDWWP 12:47
PROVIDERS: ATTEND Family Medicine
DX: M81.0 Age-related osteoporosis without current pathological fracture (principal); M85.89 Other specified disorders of bone density and structure, multiple sites
CPT/HCPCS: 77080